=== PATIENT | female | born 1975 ===

== ENCOUNTER 2016-11-22 12:24 | Emergency (ER) | payer MEDICARE, MEDICAID ==
[2016-11-22 12:33] VITALS: BMI 49.8
[2016-11-22] MEDS ORDERED: Sodium Chloride 0.9% 1,000 ML IV STA (12:43)
[2016-11-22] MEDS ORDERED: Albuterol-Ipratrop 3 mg / 0.5 (3 ml) UD IH STA (12:43)
--- NOTE | 2016-11-22 13:11 | ED PDOC ---
Arrival/HPI - General Historian: Patient - General Chief Complaint: Respiratory Distress Time Seen by Provider: 11/22/16 12:28 - History of Present Illness Narrative History of Present Illness (Text): 11/22/16 18:28 41yo female with PMhx of hypertension, Diabetes, Asthma present with complaint of dizziness x days and SOB with wheezing x weeks. States she felt off balance today. She did not take any medication or use her inhaler. She denies headache, chest pain, cough, focal weakness, aphasia, visual changes, abdominal pain, nausea, any other complaint. (Derek Mirza A) Past Medical History - Provider Review Nursing Documentation Reviewed: Yes - Infectious Disease Hx of Infectious Diseases: None - Tetanus Immunization Tetanus Immunization: Up to Date - Cardiac Hx Hypertension: Yes - Pulmonary Hx Asthma: Yes - Neurological Hx Neurological Disorder: No - HEENT Hx HEENT Disorder: No - Renal Hx Renal Disorder: No - Endocrine/Metabolic Hx Endocrine Disorders: Yes Hx Diabetes Mellitus Type 1: Yes - Hematological/Oncological Hx Blood Disorders: No - Integumentary Hx Dermatological Disorder: No - Musculoskeletal/Rheumatological Hx Falls: No - Gastrointestinal Hx Gastrointestinal Disorders: No - Genitourinary/Gynecological Hx Genitourinary Disorders: No - Psychiatric Hx Psychophysiologic Disorder: Yes Hx Anxiety: Yes Hx Bipolar Disorder: Yes Hx Depression: Yes Hx Substance Use: No - Past Surgical History Past Surgical History: No Previous - Surgical History Hx Tonsillectomy: Yes - Anesthesia Hx Anesthesia: Yes Hx Anesthesia Reactions: No Hx Malignant Hyperthermia: No - Suicidal Assessment Feels Threatened In Home Enviroment: No Family/Social History - Physician Review Nursing Documentation Reviewed: Yes Family/Social History: Unknown Family HX Smoking Status: Never Smoked Hx Alcohol Use: No Hx Substance Use: No Hx Substance Use Treatment: No Allergies/Home Meds Allergies/Adverse Reactions: Allergies No Known Allergies Allergy (Verified 03/07/16 15:37) Home Medications: Home Meds Medication Instructions Recorded Confirmed ALPRAZolam [Xanax] 1 mg PO BID 09/13/15 11/22/16 Aripiprazole [Abilify] 30 mg PO DAILY 09/13/15 11/22/16 Bupropion HCl [Bupropion Xl] 150 mg PO HS 09/13/15 11/22/16 Clonidine HCl [Catapres] 0.1 mg PO DAILY 09/13/15 11/22/16 Lisinopril [Zestril] 5 mg PO DAILY 09/13/15 11/22/16 MetFORMIN [glucoPHAGE] 2,000 mg PO BID 09/13/15 11/22/16 Omeprazole [Prilosec] 10 mg PO DAILY 09/13/15 11/22/16 Topiramate [Topamax] 25 mg PO BID 09/13/15 11/22/16 Zolpidem [Ambien] 10 mg PO HS 09/13/15 11/22/16 Review of Systems - Physician Review All systems were reviewed & negative as marked: Yes - Review of Systems Constitutional: Normal Eyes: Normal ENT: Normal Respiratory: SOB, Wheezing Cardiovascular: Normal Gastrointestinal: Normal Genitourinary Female: Normal Musculoskeletal: Normal Skin: Normal Neurological: Dizziness. absent: Headache, Focal Weakness, Speech Changes, Facial Droop Endocrine: Normal Hemo/Lymphatic: Normal Psychiatric: Normal Physical Exam Vital Signs Reviewed: Yes Temperature: Afebrile Blood Pressure: Hypertensive Pulse: Regular Respiratory Rate: Normal Appearance: Positive for: Well-Appearing, Non-Toxic, Comfortable Pain Distress: None Mental Status: Positive for: Alert and Oriented X 3 - Systems Exam Head: Present: Atraumatic, Normocephalic Pupils: Present: PERRL Extroacular Muscles: Present: EOMI Conjunctiva: Present: Normal Mouth: Present: Moist Mucous Membranes Neck: Present: Normal Range of Motion Respiratory/Chest: Present: Clear to Auscultation, Good Air Exchange. No: Respiratory Distress, Accessory Muscle Use, Wheezes, Decreased Breath Sounds, Rales, Retracting, Rhonchi, Tachypneic Cardiovascular: Present: Regular Rate and Rhythm, Normal S1, S2. No: Murmurs Abdomen: Present: Normal Bowel Sounds. No: Tenderness, Distention, Peritoneal Signs Back: Present: Normal Inspection Upper Extremity: Present: Normal Inspection. No: Cyanosis, Edema Lower Extremity: Present: Normal Inspection. No: Edema Neurological: Present: GCS=15, CN II-XII Intact, Speech Normal, Motor Func Grossly Intact, Normal Sensory Function, Normal Cerebellar Funct, Gait Normal, Memory Normal, Normal 2Pt Descrimination, Other (No focal neurological deficit) Skin: Present: Warm, Dry, Normal Color. No: Rashes Psychiatric: Present: Alert, Oriented x 3, Normal Insight, Normal Concentration Vital Signs Temp Pulse Resp BP Pulse Ox 11/22/16 15:51 98.5 F 76 16 99 11/22/16 15:23 148/96 H 11/22/16 15:02 98 F 75 11/22/16 13:31 18 11/22/16 12:29 98.6 F 90 16 156/112 H 98 Medical Decision Making ED Course and Treatment: I was available for consultation during PA evaluation. The chart was reviewed by me, and I agree with disposition. The documented history was done by the physician fermenter wine. The documented physical exam was done by the physician fermenter wine. The documented procedures were done by the physician fermenter wine. (Burak Escobar) PT's BP improved in ED . Bee notes that she is noncompliant with her hypoglycemics and anithypertensive. Noted to be eating sandwich in ED. States she feels better. She was neurological intact and ambulatory with a steady gait. Lab was noted with mild LFT elevation and hyperglycemia. She was hydrated in ED. Strongly advised to take her medication as was directed by her PCP. Referred to a Neuro. Advised tRT ED for any new or worsening symptoms. (Derek Mirza) - Lab Interpretations Lab Results: 11/22/16 13:23 11/22/16 13:23 Lab Results 11/22/16 13:23: PT 10.5, INR 0.97, APTT 23.3 L 11/22/16 13:23: Sodium 136, Potassium 3.9, Chloride 101, Carbon Dioxide 24, Anion Gap 15, BUN 21, Creatinine 0.6, Est GFR ( Amer) > 60, Est GFR (Non- Af Amer) > 60, Random Glucose 224 H, Calcium 8.9, Total Bilirubin 0.5, AST 41 H , ALT 65 H, Alkaline Phosphatase 73, Lactate Dehydrogenase 533, Total Creatine Kinase 92, Troponin I < 0.01, Total Protein 7.7, Albumin 4.2, Globulin 3.6, Albumin/Globulin Ratio 1.2 11/22/16 13:23: WBC 11.5 H, RBC 5.15, Hgb 12.2, Hct 37.7, MCV 73.2 L, MCH 23.7 L , MCHC 32.4, RDW 15.5 H, Plt Count 253, Gran % 51.2, Lymph % (Auto) 41.0 H, Dewitt % (Auto) 5.7, Eos % (Auto) 1.8, Baso % (Auto) 0.3, Gran # 5.88, Lymph # 4.7 H, Dewitt # 0.7 H, Eos # 0.2, Baso # 0.04 11/22/16 12:56: Urine Color Yellow, Urine Appearance Sl cloudy, Urine pH 6.0, Ur Specific [place] >= 1.030, Urine Protein 30 H, Urine Glucose (UA) 500 H, Urine Ketones Negative, Urine Blood Large H, Urine Nitrate Negative, Urine Bilirubin Negative, Urine Urobilinogen 1.0 H, Ur Leukocyte Esterase Negative, Urine RBC 1 - 3, Urine WBC 5 - 10, Ur Epithelial Cells Many, Urine Bacteria Mod - RAD Interpretation Radiology Orders: 11/22/16 12:42 CHEST PORTABLE [RAD] Stat 11/22/16 13:39 HEAD W/O CONTRAST [CT] Stat - Medication Orders Current Medication Orders: Discontinued Medications Albuterol/Ipratropium (Duoneb 3 Mg/0.5 Mg (3 Ml) Ud) 3 ml IH STAT STA Stop: 11/22/16 12:44 Last Admin: 11/22/16 13:17 Dose: 3 ml Sodium Chloride (Sodium Chloride 0.9%) 1,000 mls @ 999 mls/hr IV .Q1H1M STA Stop: 11/22/16 13:43 Last Admin: 11/22/16 13:17 Dose: 999 mls/hr Disposition/Present on Arrival - Present on Arrival Any Indicators Present on Arrival: No History of DVT/PE: No History of Uncontrolled Diabetes: No Urinary Catheter: No History of Decub. Ulcer: No History Surgical Site Infection Following: None - Disposition Have Diagnosis and Disposition been Completed?: Yes Disposition Time: 15:15 Patient Plan: Discharge - Disposition Diagnosis: Dizziness, Asthma Disposition: HOME/ ROUTINE Condition: STABLE Discharge Instructions (ExitCare): Dizziness (ED) Additional Instructions: Follow up with your Doctor Return to ED for any new or worsening symptoms Referrals: Jeny Langston MD [Primary Care Provider] - Follow up with primary
[2016-11-22 13:29] LABS: BASO # 0.04 K/mm3 (0.0-2.0); BASO % 0.3 % (0.0-3.0); EOS # 0.2 (0.0-0.7); EOS % 1.8 % (1.5-5.0); GRAN # 5.88 (1.4-6.5); GRAN % 51.2 % (50.0-68.0); HEMOGLOBIN 12.2 gm/dL (12.0-16.0); LYMPH # 4.7 (1.2-3.4); MEAN CELL VOLUME 73.2 fL (80.0-105.0); MEAN CORPUSCULAR HEMOGLOBIN 23.7 pg (25.0-35.0); MEAN CORPUSCULAR HGB CONC 32.4 g/dl (31.0-37.0); MONO # 0.7 (0.1-0.6); MONO % 5.7 % (1.0-6.0); PLATELET COUNT 253 10^3/uL (120.0-450.0); RBC 5.15 10^6/uL (3.5-6.1); RED CELL DISTRIBUTION WIDTH 15.5 % (11.5-14.5); WHITE BLOOD COUNT 11.5 10^3/ul (4.5-11.0)
[2016-11-22 13:30] LABS: URINE BILIRUBIN NEGATIVE (NEGATIVE); URINE BLOOD LARGE (NEGATIVE); URINE GLUCOSE (UA) 500 mg/dL (NEGATIVE); URINE LEUKOCYTE ESTERASE NEGATIVE Leu/uL (NEGATIVE); URINE NITRATE NEGATIVE (NEGATIVE); URINE PROTEIN 30 mg/dL (<30 mg/dL)
[2016-11-22 13:31] LABS: URINE APPEARANCE SL CLOUDY (CLEAR); URINE COLOR YELLOW (YELLOW)
[2016-11-22 13:36] LABS: ALB/GLOB RATIO 1.2 (1.1-1.8); ALBUMIN 4.2 g/dL (3.0-4.8); ALT/SGPT 65 U/L (7-56); AST/SGOT 41 U/L (15-39); BLOOD UREA NITROGEN 21 mg/dL (7-21); CALCIUM 8.9 mg/dL (8.4-10.5); GFR AFRICAN-AMERICAN > 60; GFR NON-AFRICAN AMERICAN > 60
[2016-11-22 13:42] LABS: INR 0.97 (0.93-1.08); PARTIAL THROMBOPLASTIN TIME 23.3 Seconds (23.7-30.8); PROTHROMBIN TIME 10.5 Seconds (9.9-11.8)
[2016-11-22 13:53] LABS: TROPONIN I < 0.01 ng/mL
[2016-11-22 13:58] LABS: URINE BACTERIA MOD (NEG); URINE EPITHELIAL CELLS MANY /hpf (0-5)
--- NOTE | 2016-11-22 14:36 | RAD ---
HISTORY: SOB COMPARISON: 03/07/2016 FINDINGS: LUNGS: No active pulmonary disease. PLEURA: No significant pleural effusion identified, no pneumothorax apparent. CARDIOVASCULAR: Normal. OSSEOUS STRUCTURES: No significant abnormalities. VISUALIZED UPPER ABDOMEN: Normal. OTHER FINDINGS: None. IMPRESSION: No active disease.
--- NOTE | 2016-11-22 15:06 | CT ---
PROCEDURE: CT HEAD WITHOUT CONTRAST. HISTORY: dizziness COMPARISON: None available. TECHNIQUE: Axial computed tomography images were obtained through the head/brain without intravenous contrast. Radiation dose: Total exam DLP = 774 mGy-cm. This CT exam was performed using one or more of the following dose reduction techniques: Automated exposure control, adjustment of the mA and/or kV according to patient size, and/or use of iterative reconstruction technique. FINDINGS: HEMORRHAGE: No intracranial hemorrhage. BRAIN: No mass effect or edema. No atrophy or chronic microvascular ischemic changes. VENTRICLES: Unremarkable. No hydrocephalus. CALVARIUM: Unremarkable. PARANASAL SINUSES: Unremarkable as visualized. No significant inflammatory changes. MASTOID AIR CELLS: Unremarkable as visualized. No inflammatory changes. OTHER FINDINGS: None. IMPRESSION: No acute findings
[2016-11-22 15:23] VITALS: BP 148/96
[2016-11-22 15:52] VITALS: PULSE 76; RESP 16; TEMP 98.5; O2SAT 99
== END 2016-11-22 15:52 | disposition home or self-care (01) ==
LOC: ED 12:24
DX: J45.909 Unspecified asthma, uncomplicated (principal); R42 Dizziness and giddiness
CPT/HCPCS: 70450; 71010; 80053; 81001; 82550; 83615; 84484; 85025; 85610; 85730; 87086; 99284; J7040

== ENCOUNTER 2017-04-01 13:31 | Emergency (ER) | payer OTHER, MEDICARE, MEDICAID ==
[2017-04-01 13:31] VITALS: BMI 49.8
[2017-04-01 13:37] VITALS: BP 152/98; PULSE 82; TEMP 98.8
[2017-04-01 13:49] VITALS: RESP 18; O2SAT 98
--- NOTE | 2017-04-01 14:00 | ED PDOC ---
Arrival/HPI <Nico Carrion - Last Filed: 04/01/17 14:40> <Noe Holloway DO - Last Filed: 04/01/17 16:54> - General Chief Complaint: Abnormal Skin Integrity Time Seen by Provider: 04/01/17 13:50 - History of Present Illness Narrative History of Present Illness (Text): CC: Laceration to right pointer finger Patient is a 41yo female who is coming into the ED after she was cutting prosciutto, and towards the end of the cut the knife swerved into her right pointer finger. Patient has been holding pressure over the wound since it happened, noted small amount of blood loss. States she has intact sensation to the finger. cannot remember her last tdap. denies fevers/chills, PARKER, CP, SOb, abdominal pain, N/V/D, dysuria/freq/urg, or lower extremity pain/swelling. 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 and ADL, denies current smoking /etoh/drug use (Nico Carrion) Past Medical History - Provider Review Nursing Documentation Reviewed: Yes - Travel History Have you recently traveled outside [place] w/in the past 3 mons?: No - Past History Past History: No Previous - Infectious Disease Hx of Infectious Diseases: None - Tetanus Immunization Tetanus Immunization: Up to Date - Reproductive Menopause: No - Cardiac Hx Hypertension: Yes - Pulmonary Hx Asthma: Yes - Neurological Hx Neurological Disorder: No - HEENT Hx HEENT Disorder: No - Renal Hx Renal Disorder: No - Endocrine/Metabolic Hx Endocrine Disorders: Yes Hx Diabetes Mellitus Type 1: Yes - Hematological/Oncological Hx Blood Disorders: No - Integumentary Hx Dermatological Disorder: No - Musculoskeletal/Rheumatological Hx Falls: No - Gastrointestinal Hx Gastrointestinal Disorders: No - Genitourinary/Gynecological Hx Genitourinary Disorders: No - Psychiatric Hx Psychophysiologic Disorder: Yes Hx Anxiety: Yes Hx Bipolar Disorder: Yes Hx Depression: Yes Hx Substance Use: No Other/Comment: ADHD , perdonality disorder - Past Surgical History Past Surgical History: No Previous - Surgical History Hx Tonsillectomy: Yes - Anesthesia Hx Anesthesia: Yes Hx Anesthesia Reactions: No Hx Malignant Hyperthermia: No - Suicidal Assessment Feels Threatened In Home Enviroment: No <Nico Carrion - Last Filed: 04/01/17 14:40> Family/Social History - Physician Review Nursing Documentation Reviewed: Yes Family/Social History: No Known Family HX Smoking Status: Never Smoked Hx Alcohol Use: No Hx Substance Use: No Hx Substance Use Treatment: No <Nico Carrion - Last Filed: 04/01/17 14:40> Allergies/Home Meds <Nico Carrion - Last Filed: 04/01/17 14:40> <Noe Holloway DO - Last Filed: 04/01/17 16:54> Allergies/Adverse Reactions: Allergies seasonal Allergy (Uncoded 04/01/17 13:37) RASH Home Medications: Home Meds Medication Instructions Recorded Confirmed ALPRAZolam [Xanax] 1 mg PO BID 09/13/15 11/22/16 Aripiprazole [Abilify] 30 mg PO DAILY 09/13/15 11/22/16 Bupropion HCl [Bupropion Xl] 150 mg PO HS 09/13/15 11/22/16 Clonidine HCl [Catapres] 0.1 mg PO DAILY 09/13/15 11/22/16 Lisinopril [Zestril] 5 mg PO DAILY 09/13/15 11/22/16 MetFORMIN [glucoPHAGE] 2,000 mg PO BID 09/13/15 11/22/16 Omeprazole [Prilosec] 10 mg PO DAILY 09/13/15 11/22/16 Topiramate [Topamax] 25 mg PO BID 09/13/15 11/22/16 Zolpidem [Ambien] 10 mg PO HS 09/13/15 11/22/16 Review of Systems - Review of Systems Constitutional: absent: Fatigue, Weight Change Eyes: absent: Vision Changes, Photophobia ENT: absent: Hearing Changes, Tinnitus Respiratory: absent: SOB, Cough Cardiovascular: absent: Chest Pain, Palpitations Gastrointestinal: absent: Abdominal Pain Genitourinary Female: absent: Dysuria, Frequency Musculoskeletal: absent: Arthralgias Skin: absent: Rash, Pruritis Neurological: absent: Headache, Dizziness Endocrine: absent: Diaphoresis, Polyuria Hemo/Lymphatic: absent: Adenopathy, Easy Bleeding Psychiatric: absent: Anxiety, Depression, Suicidal Ideation <Orebeccaharry,Nico - Last Filed: 04/01/17 14:40> Physical Exam Vital Signs Reviewed: Yes Temperature: Afebrile Blood Pressure: Hypertensive Pulse: Regular Respiratory Rate: Normal Appearance: Positive for: Well-Appearing, Non-Toxic, Comfortable Mental Status: Positive for: Alert and Oriented X 3 - Systems Exam Head: Present: Atraumatic Pupils: Present: PERRL Extroacular Muscles: Present: EOMI Conjunctiva: Present: Normal Mouth: Present: Moist Mucous Membranes Neck: Present: Normal Range of Motion Respiratory/Chest: Present: Clear to Auscultation, Good Air Exchange. No: Respiratory Distress Cardiovascular: Present: Regular Rate and Rhythm, Normal S1, S2. No: Murmurs Abdomen: Present: Normal Bowel Sounds. No: Tenderness, Distention Upper Extremity: No: Normal Inspection (small laceration on right pointer finger towards DIP, no tendon injury noted, intact neurovascular, intact sensation, intact motor) Lower Extremity: Present: Normal Inspection. No: Edema Neurological: Present: GCS=15, CN II-XII Intact Skin: Present: Warm Psychiatric: Present: Alert, Oriented x 3, Normal Insight <Nico Carrion - Last Filed: 04/01/17 14:40> Vital Signs Temp Pulse Resp BP Pulse Ox 04/01/17 13:49 98.8 F 82 18 152/98 H 98 04/01/17 13:33 98.8 F 82 16 152/98 H 99 Medical Decision Making <Nico Carrion - Last Filed: 04/01/17 14:40> <Noe Holloway DO - Last Filed: 04/01/17 16:54> ED Course and Treatment: Simple Finger Laceration Will X-Ray to see if knicked bone will suture tdap pain control dispo and reassess 04/01/17 14:17 x-ray does not show any foreign body (Nico Carrion) - RAD Interpretation Radiology Orders: 04/01/17 13:55 HAND RIGHT 2ND DIGIT (FINGER) [RAD] Stat - Medication Orders Current Medication Orders: Discontinued Medications Oxycodone/Acetaminophen (Percocet 10/325 Mg Tab) 1 tab PO STAT STA Stop: 04/01/17 13:57 Last Admin: 04/01/17 14:48 Dose: 1 tab MAR Pain Assessment Document 04/01/17 14:48 HI (Rec: 04/01/17 14:48 [id number]) Pain Reassessment Is this a pain reassessment? No Sleep Is patient sleeping during reassessment? No Presence of Pain Presence of Pain Yes Location Left, Right or Bilateral Right Pain Location Body Site Hand Tetanus/Reduced Diphtheria/Acell Pertussis (Boostrix Vaccine Inj) 0.5 ml IM .ONCE ONE Stop: 04/01/17 14:08 Last Admin: 04/01/17 14:48 Dose: 0.5 ml Immunization Registry Document 04/01/17 14:48 HI (Rec: 04/01/17 14:48 [id number]) Immunization Registry Consent Date 04/01/17 - PA / [employer] FUSER / Resident Statement MONI has reviewed & agrees with the documentation as recorded. MONI has examined the patient and agrees with the treatment plan. <Noe Holloway DO - Last Filed: 04/01/17 16:54> Disposition/Present on Arrival - Present on Arrival Any Indicators Present on Arrival: No History of DVT/PE: No History of Uncontrolled Diabetes: No Urinary Catheter: No History of Decub. Ulcer: No History Surgical Site Infection Following: None - Disposition Have Diagnosis and Disposition been Completed?: Yes Disposition Time: 14:41 Patient Plan: Discharge <Nico Carrion - Last Filed: 04/01/17 14:40> <Noe Holloway DO - Last Filed: 04/01/17 16:54> - Disposition Diagnosis: Laceration, Need for Tdap vaccination Disposition: HOME/ ROUTINE Condition: FAIR Discharge Instructions (ExitCare): Laceration (ED) Additional Instructions: Please go to your PCP or here to the ER to have your sutures taken out in 7 days please keep the wound dry/clean for the next day; do not get the ken submursed in water but sponging the area is OK with something that is sterile Feel better. Forms: [employer] (Estonian), WORK NOTE Laceration - Laceration Repair No standard instances Wound Length (In cm): 2cm Description Of Wound: Linear Wound Cleansed With: Betadine, Sterile Saline Anesthesia: Lidocaine 1% Wound Examination: Irrigated With Saline, No FB With Wound Exploration Wound Closure: Suture (3 4-0 prolene simple interrupted surtures entered ) Suture Technique And Material Used: Interrupted Wound Complexity: Simple <Nico Carrion - Last Filed: 04/01/17 14:40>
[2017-04-01] MEDS ORDERED: Lidocaine 1% Inj (20ml) ONE (14:07)
[2017-04-01] MEDS: TDAP Vaccine 0.5 mL Syr IM ONE (14:48)
[2017-04-01] MEDS: Oxycodone/Acetaminophen 10/325 mg Tab PO STA (14:48)
--- NOTE | 2017-04-01 15:07 | RAD ---
PROCEDURE: Right Index finger radiographs. HISTORY: cut r/o foreign body COMPARISON: None. TECHNIQUE: AP radiograph of the right hand, as well as spot oblique and lateral images of index finger were obtained. FINDINGS: RIGHT INDEX FINGER: Normal right index finger, without fracture or focal lesion. Remainder of the right hand (as seen on the AP view) grossly intact. JOINTS: Normal. SOFT TISSUES: Normal. OTHER FINDINGS: None. IMPRESSION: Normal right index finger radiographs.
== END 2017-04-01 14:50 | disposition home or self-care (01) ==
LOC: ED 13:31
DX: S61.210A Laceration without foreign body of right index finger without damage to nail, initial encounter (principal); W26.0XXA Contact with knife, initial encounter; E78.5 Hyperlipidemia, unspecified; I10 Essential (primary) hypertension; E10.9 Type 1 diabetes mellitus without complications; Z79.4 Long term (current) use of insulin; Z23 Encounter for immunization

== ENCOUNTER 2018-03-18 18:35 | Emergency (ER) | payer MEDICARE, MEDICAID ==
[2018-03-18 18:35] VITALS: BMI 49.8
[2018-03-18 19:23] VITALS: RESP 18
--- NOTE | 2018-03-18 20:00 | ED PDOC ---
Arrival/HPI - General Chief Complaint: Abdominal Pain Time Seen by Provider: 03/18/18 19:05 Historian: Patient - History of Present Illness Narrative History of Present Illness (Text): 03/18/18 19:39 Patient is a 42 year old female whose past medical history includes diabetes, and hypertension, who presents to the Emergency department complaining of RUQ discomfort with recent bruising. Patient reports having RUQ discomfort, which has been intermittent for "up and on for a long time", and woke up 2 days ago noticing a bruise to the area. She states that the discomfort is associated with a palpable mass, which she has felt for a long time as well. Patient admits to being diabetic but hasn't been taking her medications for at least 6 months as well as not taking her antihypertensive medications. She does admit to increased urinary frequency without dysuria, and nausea, but otherwise denies any fever, vomiting, diarrhea or other complaints. Patient denies any surgical history. PMD Kian Time/Duration: Other (bruise 2 days ago) Symptom Onset: Sudden Symptom Course: Unchanged Context: Home Past Medical History - Provider Review Nursing Documentation Reviewed: Yes - Past History Past History: No Previous - Infectious Disease Hx of Infectious Diseases: None - Tetanus Immunization Tetanus Immunization: Up to Date - Cardiac Hx Hypertension: Yes - Pulmonary Hx Asthma: Yes - Neurological Hx Neurological Disorder: No - HEENT Hx HEENT Disorder: No - Renal Hx Renal Disorder: No - Endocrine/Metabolic Hx Endocrine Disorders: Yes Hx Diabetes Mellitus Type 1: Yes - Hematological/Oncological Hx Blood Disorders: No - Integumentary Hx Dermatological Disorder: No - Musculoskeletal/Rheumatological Hx Falls: No - Gastrointestinal Hx Gastrointestinal Disorders: No - Genitourinary/Gynecological Hx Genitourinary Disorders: No - Psychiatric Hx Psychophysiologic Disorder: Yes Hx Anxiety: Yes Hx Bipolar Disorder: Yes Hx Depression: Yes Hx Substance Use: No Other/Comment: ADHD , perdonality disorder - Past Surgical History Past Surgical History: No Previous - Surgical History Hx Tonsillectomy: Yes - Anesthesia Hx Anesthesia: Yes Hx Anesthesia Reactions: No Hx Malignant Hyperthermia: No - Suicidal Assessment Feels Threatened In Home Enviroment: No Family/Social History - Physician Review Nursing Documentation Reviewed: Yes Family/Social History: No Known Family HX Smoking Status: Never Smoked Hx Alcohol Use: No Hx Substance Use: No Hx Substance Use Treatment: No Allergies/Home Meds Allergies/Adverse Reactions: Allergies seasonal Allergy (Uncoded 04/01/17 13:37) RASH Home Medications: Home Meds Medication Instructions Recorded Confirmed ALPRAZolam [Xanax] 1 mg PO BID 09/13/15 11/22/16 Aripiprazole [Abilify] 30 mg PO DAILY 09/13/15 11/22/16 Bupropion HCl [Bupropion Xl] 150 mg PO HS 09/13/15 11/22/16 Clonidine HCl [Catapres] 0.1 mg PO DAILY 09/13/15 11/22/16 Lisinopril [Zestril] 5 mg PO DAILY 09/13/15 11/22/16 MetFORMIN [glucoPHAGE] 2,000 mg PO BID 09/13/15 11/22/16 Omeprazole [Prilosec] 10 mg PO DAILY 09/13/15 11/22/16 Topiramate [Topamax] 25 mg PO BID 09/13/15 11/22/16 Zolpidem [Ambien] 10 mg PO HS 09/13/15 11/22/16 Review of Systems - Physician Review All systems were reviewed & negative as marked: Yes - Review of Systems Constitutional: absent: Fevers Cardiovascular: Chest Pain (intermittent chest pain for past several days worse with exertion, reports no chest pain at the present time) Gastrointestinal: Abdominal Pain, Nausea. absent: Diarrhea, Vomiting Genitourinary Female: Frequency (increased urinary frequency). absent: Dysuria Physical Exam Vital Signs Reviewed: Yes Vital Signs Temp Pulse Resp BP Pulse Ox 03/18/18 19:18 98.5 F 97 H 18 160/98 H 98 Temperature: Afebrile Blood Pressure: Hypertensive Pulse: Regular Respiratory Rate: Normal Appearance: Positive for: Well-Appearing, Other (obese) Mental Status: Positive for: Alert and Oriented X 3 - Systems Exam Head: Present: Atraumatic, Normocephalic Pupils: Present: PERRL Extroacular Muscles: Present: EOMI Conjunctiva: Present: Normal Mouth: Present: Moist Mucous Membranes Neck: Present: Normal Range of Motion Respiratory/Chest: Present: Clear to Auscultation, Good Air Exchange. No: Respiratory Distress, Accessory Muscle Use Cardiovascular: Present: Regular Rate and Rhythm, Normal S1, S2. No: Murmurs Abdomen: Present: Other (4cm area of ecchymosis to RUQ with a palpable mass that is about 3cm in size non tender.). No: Tenderness, Distention, Peritoneal Signs Back: Present: Normal Inspection Upper Extremity: Present: Normal Inspection. No: Cyanosis, Edema Lower Extremity: Present: Normal Inspection. No: Edema Neurological: Present: GCS=15, CN II-XII Intact, Speech Normal Skin: Present: Warm, Dry, Normal Color. No: Rashes Psychiatric: Present: Alert, Oriented x 3, Normal Insight, Normal Concentration Medical Decision Making ED Course and Treatment: 03/18/18 19:39 Impression: 42 year old female with chronic intermittent RUQ discomfort that noticed a bruise to the area 2 days ago. Differential Diagnosis included but are not limited to: Plan: --Abdominal and Pelvic CT with PO and IV contrast -- Labs -- Cardiac enzymes -- Blood work -- Chest X-ray -- Urinalysis -- Reassess and disposition Prior Visits: Notes and results from previous visits were reviewed. Progress Notes: 03/19/18 00:18 Lab results reviewed : wbc 12, trop (-), LFTs and lipase wnl. CXR : NAD, as read by [facility]AD EKG : NSR at 80 bpm, no acute ST changes. CT ABD & Pelvis TECHNIQUE: Multiple axial, coronal, sagittal CT images were obtained through the abdomen and pelvis after administration of oral and intravenous contrast material. Omnipaque 350 100 ml was administered. Total DLP equals 1033.26 mGy.cm. COMMENTS: The liver is of uniform attenuation without mass or defect. There is no intra or extrahepatic biliary ductal dilatation. The spleen is normal. The gallbladder is within normal limits. The pancreas is of normal contour and attenuation characteristics. There is no evidence of adrenal mass. Both kidneys demonstrate prompt and equal nephrograms. The kidneys are normal in size, shape, and configuration. There is no evidence of renal or ureteral mass. No renal or ureteral calculi are identified. There is no hydroureter or hydronephrosis. No evidence for appendicitis. There is no bowel wall thickening. No evidence for small or large bowel obstruction. There is no evidence of abdominal ascites. Note is made of multiple small mesenteric and retroperitoneal lymph nodes. There is some mild mesenteric infiltration. Finding may represent mesenteric lymphadenitis. Please correlate clinically to exclude lymphoproliferative proc ess. There is no evidence of intrinsic or extrinsic bladder mass. There is no pelvic ascites. Images of the lung bases show no evidence of pleural or parenchymal mass. There are no pleural effusions. The bony structures are free of lytic or blastic lesions. IMPRESSION: Multiple small mesenteric and retroperitoneal lymph nodes. There is some mild mesenteric infiltration. Finding may represent mesenteric lymphadenitis. Please correlate clinically to exclude lymphoproliferative process. On reevaluation, patient remains awake alert and oriented 3 in no acute distress, has no additional complaints, reports no worsening abdominal pain, no CP, no SOB. Abdomen remains soft and nontender, no increase in the size of bruising, no guarding, no rebound, no CVA tenderness. Diagnostic results d/w the patient. Dx of mesenteric adenitis d/w the patient. BP 145/87 P 84. Advised to follow up with primary care physician in 1-2 days without fail, especially regarding her DM, uncontrolled DM and HTN, patient encouraged to follow DM diet and was advised of the complications of uncontrolled DM and HTN. Advised to follow up CT results with pmd without fail. Return to the emergency room at any time for any new or worsening symptoms. Patient states she fully agrees with and understands discharge instructions. States that she agrees with the plan and disposition. Verbalized and repeated di jovita instructions and plan. I have given the patient opportunity to ask any additional questions. - RAD Interpretation Radiology Orders: 03/18/18 19:20 ABD PELVIS PO & IV CONTRAST [CT] Stat 03/18/18 19:22 CHEST ONE VIEW [RAD] Stat - PA / [employer] GENERAL MANAGER / Resident Statement MD/DO has reviewed & agrees with the documentation as recorded. - Scribe Statement The provider has reviewed the documentation as recorded by the Scribe Brown Andersen Provider Scribe Attestation: All medical record entries made by the Scribe were at my direction and personally dictated by me. I have reviewed the chart and agree that the record accurately reflects my personal performance of the history, physical exam, medical decision making, and the department course for this patient. I have also personally directed, reviewed, and agree with the discharge instructions and disposition. Disposition/Present on Arrival - Present on Arrival Any Indicators Present on Arrival: No History of DVT/PE: No History of Uncontrolled Diabetes: No Urinary Catheter: No History of Decub. Ulcer: No History Surgical Site Infection Following: None - Disposition Have Diagnosis and Disposition been Completed?: Yes Diagnosis: Abdominal pain, Mesenteric adenitis Disposition: HOME/ ROUTINE Disposition Time: 01:00 Patient Plan: Discharge Patient Problems: Current Active Problems Problem Status Onset Abdominal pain Acute Mesenteric adenitis Acute Condition: STABLE Discharge Instructions (ExitCare): Acute Abdomen (Belly Pain), Adult (DC), Mesenteric Lymphadenitis (DC) Additional Instructions: Thank you for letting us take care of you today. You were treated for abdominal pain, mesenteric adenitis. The emergency medical care you received today was directed at your acute symptoms. Return to the Emergency Department if your symptoms worsen, do not improve, or if you have any other problems. Please contact your doctor in 2 days for re-evaluation and follow up. Bring any paperwork you were given at discharge with you along with any medications you are taking to your follow up visit. Our treatment cannot replace ongoing medical care by a primary care provider (PCP) outside of the emergency department. Thank you for allowing the [facility] team to be part of your care today. If you had a CT scan: A Radiologist will review the ED reading if any change in treatment is needed we will contact you. Your CT of the abdomen and pelvis today revealed : Multiple small mesenteric and retroperitoneal lymph nodes. There is some mild mesenteric infiltration. Finding may represent mesenteric lymphadenitis. Please correlate clinically to exclude lymphoproliferative process. Referrals: Jeny Langston MD [Primary Care Provider] - Follow up with primary Forms: [place] (Turkish), WORK NOTE
[2018-03-18] MEDS ORDERED: Iohexol 240 (50 ml) ONE (20:07)
[2018-03-18] MEDS ORDERED: Iohexol 350 MG/100 ML VIAL ONE (20:07)
[2018-03-18 20:15] LABS: BASO # 0.04 K/mm3 (0.0-2.0); BASO % 0.3 % (0.0-3.0); EOS # 0.3 (0.0-0.7); EOS % 2.6 % (1.5-5.0); GRAN # 6.12 (1.4-6.5); GRAN % 50.8 % (50.0-68.0); HEMOGLOBIN 13.3 g/dL (12.0-16.0); LYMPH % 41.4 % (22.0-35.0); MEAN CORPUSCULAR HEMOGLOBIN 25.5 pg (25.0-35.0); MEAN CORPUSCULAR HGB CONC 33.1 g/dl (31.0-37.0); MEAN PLATELET VOLUME 12.2 fl (7.0-11.0); MONO # 0.6 (0.1-0.6); MONO % 4.9 % (1.0-6.0); RBC 5.22 10^6/uL (3.5-6.1); RED CELL DISTRIBUTION WIDTH 14.5 % (11.5-14.5); WHITE BLOOD COUNT 12.1 10^3/uL (4.5-11.0)
[2018-03-18 20:15] LABS: URINE BILIRUBIN NEGATIVE (NEGATIVE); URINE BLOOD MODERATE (NEGATIVE); URINE GLUCOSE (UA) >=1000 mg/dL (NEGATIVE); URINE LEUKOCYTE ESTERASE NEGATIVE Leu/uL (NEGATIVE); URINE PROTEIN NEGATIVE mg/dL (<30 mg/dL); URINE UROBILINOGEN 0.2 E.U./dL (<1 E.U./dL)
[2018-03-18 20:17] LABS: URINE APPEARANCE CLEAR (CLEAR)
[2018-03-18 20:23] LABS: INR 0.96; PARTIAL THROMBOPLASTIN TIME 25.9 Seconds (25.1-36.5); PROTHROMBIN TIME 10.9 SECONDS (9.4-12.5)
[2018-03-18 20:32] LABS: URINE BACTERIA TRACE (NEG); URINE RBC 15 - 20 /hpf (0-2)
[2018-03-18 20:34] LABS: TROPONIN I < 0.01 ng/mL
[2018-03-18 20:52] LABS: ALB/GLOB RATIO 1.1 (1.1-1.8); ALBUMIN 3.9 g/dL (3.0-4.8); ALT/SGPT 40 U/L (7-56); AST/SGOT 37 U/L (14-36); CALCIUM 9.1 mg/dL (8.4-10.5); GFR NON-AFRICAN AMERICAN > 60
[2018-03-18 20:55] LABS: BLOOD UREA NITROGEN 14 mg/dL (7-21); LIPASE 257 U/L (23-300)
[2018-03-18] MEDS ORDERED: Sodium Chloride 0.9% 1,000 ML IV STA (21:00)
[2018-03-18 23:16] VITALS: TEMP 98.2; O2SAT 100
[2018-03-19 01:29] VITALS: BP 145/87; PULSE 84
--- NOTE | 2018-03-19 09:00 | CT ---
Date of service: 03/18/2018 PROCEDURE: CT Abdomen and Pelvis with contrast HISTORY: RUQ pain with bruising COMPARISON: None. TECHNIQUE: Contrast dose: Radiation dose: Total exam DLP = 1033.26 mGy-cm. This CT exam was performed using one or more of the following dose reduction techniques: Automated exposure control, adjustment of the mA and/or kV according to patient size, and/or use of iterative reconstruction technique. FINDINGS: LOWER THORAX: Unremarkable. LIVER: Unremarkable. No gross lesion or ductal dilatation. GALLBLADDER AND BILE DUCTS: Unremarkable. PANCREAS: Unremarkable. No gross lesion or ductal dilatation. SPLEEN: Unremarkable. ADRENALS: Unremarkable. No mass. KIDNEYS AND URETERS: Unremarkable. No hydronephrosis. No solid mass. VASCULATURE: Unremarkable. No aortic aneurysm. No aortic atherosclerotic calcification or mural plaque present. BOWEL: Unremarkable. No obstruction. No gross mural thickening. APPENDIX: Normal appendix. PERITONEUM: Minimal mesenteric fat infiltration with scattered mesenteric lymph nodes suggesting a panniculitis/mesenteric adenitis. LYMPH NODES: Unremarkable. No enlarged lymph nodes. BLADDER: Unremarkable. REPRODUCTIVE: Unremarkable. BONES: No acute fracture. OTHER FINDINGS: None. IMPRESSION: Minimal mesenteric fat infiltration with scattered mesenteric lymph nodes suggesting a panniculitis/mesenteric adenitis.
--- NOTE | 2018-03-19 09:24 | RAD ---
Date of service: 03/18/2018 PROCEDURE: CHEST RADIOGRAPH, 1 VIEW HISTORY: CP COMPARISON: 11/22/2016 FINDINGS: LUNGS: Clear. PLEURA: No pneumothorax or pleural fluid seen. CARDIOVASCULAR: Normal. OSSEOUS STRUCTURES: No significant abnormalities. VISUALIZED UPPER ABDOMEN: Normal. OTHER FINDINGS: None. IMPRESSION: No active disease.
--- NOTE | 2018-03-19 13:32 | CARD ---
APPROVED REPORT Date of service: 03/19/2018 EKG Measurement Heart [id number] [id number] <Conclusion> Normal sinus rhythm Septal infarct, age undetermined Abnormal ECG
== END 2018-03-19 01:37 | disposition home or self-care (01) ==
LOC: ED 18:35
DX: R10.11 Right upper quadrant pain (principal); I88.0 Nonspecific mesenteric lymphadenitis; I10 Essential (primary) hypertension; E10.9 Type 1 diabetes mellitus without complications; Z79.4 Long term (current) use of insulin
CPT/HCPCS: 71045; 74177; 80053; 81001; 82948; 83690; 83735; 84484; 85025; 85610; 85730; 93005; 96360; 99285; J7030; Q9966; Q9967